=== PATIENT | female | born 1950 | race Caucasian/White ===

== ENCOUNTER 2017-05-30 08:13 | Day surgery (SDC) | payer OTHER ==
[2017-05-30 09:20] LABS: ADD MAN DIFF? NO
[2017-05-30 09:22] LABS: BASOPHIL # 0.1 10^3/ul (0.0-0.1); BASOPHILS % 0.7 % (0.0-2.0); EOSINOPHILS # 0.1 10^3/ul (0.0-0.5); HEMATOCRIT 40.3 % (37.0-47.0); HEMOGLOBIN 13.7 g/dl (12.0-16.0); LYMPHOCYTES # 2.1 10^3/ul (0.8-2.9); LYMPHOCYTES % 29.7 % (15.0-51.0); MEAN CORPUSCULAR HEMOGLOBIN 32.4 pg (29.0-33.0); MEAN CORPUSCULAR VOLUME 95.3 fl (82.0-101.0); MEAN PLATELET VOLUME 11.9 fl (7.4-10.4); MONOCYTE # 0.9 10^3/ul (0.3-0.9); MONOCYTES % 12.9 % (0.0-11.0); NEUTROPHIL # 3.8 10^3/ul (1.6-7.5); NEUTROPHILS % 54.3 % (39.0-77.0); PLATELET COUNT 148 10^3/UL (140-415); RED BLOOD COUNT 4.23 10^6/ul (4.20-5.40); RED CELL DISTRIBUTION WIDTH 14.3 % (11.5-14.5)
[2017-05-30 09:22] LABS: WHITE BLOOD COUNT 7.1 10^3/ul (4.8-10.8)
[2017-05-30 09:40] LABS: INR 0.97
[2017-05-30 09:41] LABS: PARTIAL THROMBOPLASTIN TIME 30.6 Sec (25.0-35.0)
[2017-05-30 09:43] LABS: ALANINE AMINOTRANSFERASE 48 IU/L (13-69); ALBUMIN 4.1 g/dl (3.3-4.9); ALBUMIN/GLOBULIN RATIO 1.17; ALKALINE PHOSPHATASE 62 IU/L (42-121); ANION GAP 11 (8-16); ASPARTATE AMINO TRANSFERASE 40 IU/L (15-46); BILIRUBIN,INDIRECT 0.4 mg/dl (0-1.1); BILIRUBIN,TOTAL 0.4 mg/dl (0.2-1.3); CARBON DIOXIDE 29 mmol/L (21-31); CHLORIDE 106 mmol/L (97-110); GLUCOSE 93 mg/dl (70-220); TOTAL PROTEIN 7.6 g/dl (6.1-8.1)
[2017-05-30 09:46] LABS: BLOOD UREA NITROGEN 21 mg/dl (7-20); CALCIUM 8.7 mg/dl (8.4-10.2); POTASSIUM 3.9 mmol/L (3.5-5.1); SODIUM 142 mmol/L (135-144)
[2017-05-30] MEDS ORDERED: FENTAnyl 50 MCG/ML VIAL (12:45)
[2017-05-30] MEDS ORDERED: MIDAZOLAM 1 MG/ML 2 ML INJ (12:45)
[2017-05-30] MEDS ORDERED: LIDOCAINE 1% (MDV) 20 ML INJ (12:46)
[2017-05-30] MEDS ORDERED: IODIXANOL LOCM 100 ML BTL (12:46)
[2017-05-30] MEDS ORDERED: SOD CHLORIDE 0.9% 1,000 ML IV (13:12)
[2017-05-30] MEDS ORDERED: AL HYDROX/MG HYDROX/SIMETH 30 ML CUP PO (13:30)
[2017-05-30] MEDS ORDERED: ONDANSETRON 4 MG INJ IV (13:30)
[2017-05-30] MEDS ORDERED: ACETAMINOPHEN 325 MG TAB PO (13:30)
[2017-05-30] MEDS: morphine 2 MG INJ IV (15:19)
[2017-05-30] MEDS ORDERED: AMLODIPINE 2.5 MG TAB GTB (16:00)
[2017-05-30] MEDS ORDERED: HYDROCODONE/APAP (5/325) TAB GTB (16:00)
== END 2017-05-30 20:37 | disposition home or self-care (01) ==
LOC: SDS 08:13
DX: I35.9 Nonrheumatic aortic valve disorder, unspecified (principal); I50.9 Heart failure, unspecified
CPT/HCPCS: 80053; 85025; 85610; 85730; 93005; 93454